=== PATIENT | male | born 1955 | race Caucasian/White ===

== ENCOUNTER → 2016-09-12 | Outpatient (CLI) | payer BC ==
[~2016-09-12] VITALS: Ht 175.3 cm; Wt 99.8 kg
[~2016-09-12] MED LIST: AMITRIPTYLINE H25 M2 PO; CARISOPRODOL 3350 MG PO; CHLORDIAZEPOXIDE5 M2 PO; HYDROCODONE-APA1 TA1 PO; INDERAL40 MG PO; LYRICA 75 MG CA75 MG PO; NEURONTIN 300300 M1 PO; PREDNISONE 10 M10 MG PO; PRILOSEC OTC20 MG PO; VENTOLIN HFA 1818 GM INH
--- NOTE | ~2016-09-12 | HPC ---
[facility] [place] [address] PAIN MANAGEMENT CONSULTATION Name: AILYN EL Room #: REG Dianna Roberto#: [id number] Admission: 09/12/16 Attend Phys: Eduardo Wood DO Discharge: Date of : 55 Report #: [id number] THIS REPORT FOR: //name// CC: Asif Contreras HISTORY OF PRESENT ILLNESS: The patient is a 60-year-old gentleman, seen in consultation at the request of Dr. 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 The patient notes he had decompressive lumbar laminectomy in 2001, by reports an L4-L5 laminectomy. The patient presented to the neurosurgeon with left sciatic-type pain. Unfortunately, subsequent to the surgery, he has had significant bipedal neuropathy. Per the patient, he has had a series of up to 6 epidural injections over the past several years, last injection being 4 years ago. Caudal epidural injections all with nominal efficacy. Followed up with a neurologist in [place], with whom he has an ongoing relationship. 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 Had found gabapentin helpful in the past, was rotated to Lyrica 75 mg b.i.d., but had to discontinue this agent due to exorbitant cost. Currently, he has been using hydrocodone 7.5/325 a half to 1 tablet at bedtime for up to 15 years. Just filled the prescription for 100 tablets 09/06/2016. Typically, this will last for about 3 months. He describes a burning pain in his feet exacerbated with standing, electric sensation that is quite problematic. Denies weakness, saddle anesthesia or bowel or bladder continence changes. Notes pain is anywhere from a 5 to a "10+" on a 0-10 visual analog scale. REVIEW OF SYSTEMS: Complete review of systems is attached to chart and is gone over with the patient. SOCIAL HISTORY: He is , seen in the company of his , who is supportive. He does not smoke or drink alcohol to excess. History of asthma for which he uses p.r.n. Proventil inhaler, has a benign familial tremor for which he takes propranolol p.r.n. Prilosec p.r.n. for gastroesophageal reflux. He has a prescription for carisoprodol, which he uses at bedtime for pain, hydrocodone 7.5/325, again, one half to one tablet at bedtime for pain. Chlordiazepoxide, again low dose 5 mg typically p.r.n. for insomnia and pain. PAST SURGICAL HISTORY: Includes the aforementioned back surgery in 2001 and a left knee reconstruction in 2011. OCCUPATIONAL HISTORY: The patient works in construction management, typically [address] [address] PAIN MANAGEMENT CONSULTATION Name: AILYN EL Room #: REG ANN Mejia#: [id number] Admission: 09/12/16 Attend Phys: Eduardo Wood DO Discharge: Date of : 55 Report #: [id number] overseeing hospital construction on basis. He has continued to work despite pain. Pain impact score is 49/70. PHYSICAL EXAMINATION: GENERAL: Reveals a 5 feet 9 inches, 220-pound gentleman, BMI is 30.5 kg/m2. VITAL SIGNS: Blood pressure is 122/96, pulse 93 and respirations 16. NEUROLOGIC: Cranial nerves 2-12 are grossly intact. Pupils equal and reactive to light and accommodation. Extraocular muscles are intact. He is alert and oriented to person, place and time, judged to be a reasonable historian. Thyroid is unremarkable. Upper extremity strength is preserved. He has a history of benign familial tremor, though I detect none at present. Rises from chair easily. Gait is tandem. He can walk on his toes and heels. Lumbar flexion is limited about 80 degrees. Lower extremity strength is symmetric. Patellar reflexes are diminished on the left 1/4, 2/4 on the right. Achilles reflex similarly diminished on the left compared to the right. Straight leg raise is negative. HEART: Regular and rhythmical without murmur. LUNGS: Clear to auscultation. ABDOMEN: Unremarkable. DIAGNOSTIC STUDIES: There are no recent diagnostic studies available for evaluation at this time. ASSESSMENT: Neuropathic pain, bipedal likely secondary to lumbosacral irritation of nerve roots (arachnoiditis?). RECOMMENDATIONS: 1. We will request the patient sign release forms for his MRI and EMGs all done within the last 4 years. While these are somewhat dated, the patient notes symptoms have not changed since that time. 2. We will resume gabapentin 300 mg at bedtime, titrating on a 5-day basis up to 1 in the morning and 2 at night. Follow up in 4 weeks for reevaluation. The patient is doing well, tolerating medicines but with no side effects, but still having symptoms. We may add a sodium channel membrane stabilizing agent (Tegretol 200 mg, again starting 200 at bedtime and titrating to a target dose of 1 in the morning and 2 at night). If this does not afford adequate efficacy, we also talked today about possibility of a spinal cord stimulator. Our goal will be to manage neuropathic pain symptoms to the point that he does not require an opiate analgesic at bedtime. [facility] [address] [place] [address] PAIN MANAGEMENT CONSULTATION Name: SIENNAAILYNCleo KINGLEONARDA Room #: REG CL Neetu.#: [id number] Admission: 09/12/16 Attend Phys: Eduardo Wood DO Discharge: Date of : 55 Report #: [id number] Thank you for allowing me to participate in the patient's care. I will keep you abreast of his progress. <ELECTRONICALLY SIGNED> By: Eduardo Wood DO 09/13/16 1626 1514 0814 Eduardo Wood DO /nt
[2016-09-12 13:39] VITALS: BP 122/96
== END ==
LOC: PAIN 13:07
DX: G89.29 Other chronic pain (principal)

== ENCOUNTER → 2016-10-18 | Outpatient (CLI) | payer BC ==
[~2016-10-18] VITALS: Ht 175.3 cm; Wt 102.1 kg
[~2016-10-18] MED LIST changes: +TRILEPTAL150 MG PO
[2016-10-18 13:13] VITALS: BP 144/98
== END | disposition home or self-care (01) ==
LOC: PAIN 06:54
DX: M79.672 Pain in left foot (principal); G89.29 Other chronic pain; M79.671 Pain in right foot; F11.20 Opioid dependence, uncomplicated; Z98.890 Other specified postprocedural states; Z88.8 Allergy status to other drugs, medicaments and biological substances

== ENCOUNTER → 2016-12-30 | Outpatient (CLI) | payer BC ==
[~2016-12-30] VITALS: Ht 175.3 cm; Wt 101.0 kg
[~2016-12-30] MED LIST changes: +NORCO 7.5-3251 EACH PO
--- NOTE | ~2016-12-30 | HPC ---
[facility] [place] [address] [address] [place] [address] PAIN MANAGEMENT CONSULTATION Name: AILYN EL Room #: REG ANN Roberto#: [id number] Admission: 12/30/16 Attend Phys: Eduardo Wood DO Discharge: Date of : 55 Report #: [id number] THIS REPORT FOR: //name// CC: Asif Wood DATE OF SERVICE: 12/30/2016 The patient is a pleasant 61-year-old gentleman seen in consultation on 09/12/2016 for bipedal neuropathy. He is status post lumbar decompressive laminectomy. He has been treated for high risk complex medication management. We continued gabapentin 300 mg b.i.d. at his initial visit. On last visit, I added Trileptal 150 mg. He returns to Pain Clinic today. Notes that the addition of Trileptal really afforded no relief. We have elected to wean this agent. I discussed the spinal cord stimulator at last visit. He has done a fair bit of research on his own regarding this therapeutic device and is anxious about moving forward with a trial for bipedal neuropathy. He did see Maegan Blanchard MD for psychiatric evaluation last month, notes "patient has good understanding of the proposed procedure." His expectations for pain are realistic and he has spoken to me about alternatives to this treatment. I do not believe that this patient has any other psychological disorder or factor that would inhibit him from getting implantation. Today, however, he also notes some chronic right hip pain. He notes he had done karate throughout all of his adult life, actually only quit about age 56. He had had trauma to the right hip in the past. He had an injection about 5 years ago with good improvement of symptoms. States he had had some increasing pain over the last month, but today it is fairly nominal. PHYSICAL EXAMINATION: Today, physical exam shows a 61-year-old gentleman. BMI is 32.9 kg/m2. Blood pressure on EMR, pulse 72, respirations of 14, subjective pain score is 4 on a VAS. Again, chronic burning dysesthesia in his feet with some prior pain in the right hip, which is quiescent at present. The patient rises from chair using armrest. Gait is tandem. Lower extremity strength is preserved. Burning dysesthesia in his feet. Passive rotation of the right hip is unremarkable at this time. Extension of the hip (Melissa test) does exacerbate some right groin pain. ASSESSMENT: Lumbar radiculopathy, status post decompressive laminectomy, arachnoiditis, neuropathic pain, bipedal neuropathy in a patient with component of right hip degenerative joint disease. RECOMMENDATION: If right hip issues become problematic in the future, we can consider right hip joint injection under fluoroscopy. Presently, however, we elected to move forward with spinal cord stimulator trial at earliest possible [address] [address] PAIN MANAGEMENT CONSULTATION Name: AILYN EL Room #: REG ANN Mejia#: [id number] Admission: 12/30/16 Attend Phys: Eduardo Wood DO Discharge: Date of : 55 Report #: [id number] date. We did again review diagnostic trial expectations and possible indentation if successful. The patient was seen for prolonged visit from 13:12-13:40. Greater than 50% of this 28-minute visit was spent counseling the patient. Discharged in good and stable condition. <ELECTRONICALLY SIGNED> By: Eduardo Wood DO 01/01/17 0811 1507 0148 Eduardo Wood DO /nt
[2016-12-30 13:11] VITALS: BP 135/90
== END ==
LOC: PAIN 09:47
DX: M54.16 Radiculopathy, lumbar region (principal); M16.11 Unilateral primary osteoarthritis, right hip

== ENCOUNTER → 2017-10-16 | Outpatient (CLI) | payer OTHER ==
[~2017-10-16] VITALS: Ht 175.3 cm; Wt 99.0 kg
[~2017-10-16] MED LIST changes: +ASPIR-TRIN325 MG PO; +CHLORDIAZEPO-A1 EACH PO
--- NOTE | ~2017-10-16 | HPC ---
[facility] [place] [address] PAIN MANAGEMENT CONSULTATION Name: AILYN EL Room #: REG Dianna Roberto#: [id number] Admission: 10/16/17 Attend Phys: Eduardo Wood DO Discharge: Date of : 55 Report #: [id number] THIS REPORT FOR: //name// CC: Asif Wood The patient is a 61-year-old gentleman, prior seen for symptomatic bipedal neuropathy, failed back syndrome, status post lumbar decompressive laminectomy. We had tried a multiplicity of membrane stabilizing agents including both sodium and calcium channel membrane stabilizers (gabapentin and Trileptal). Really no efficacy. We talked about a spinal cord stimulator as possible therapeutic option. His psychiatric evaluation by Dr. Maegan Blanchard stated "the patient has good understanding of the proposed procedure." Expectations were realistic. "I don't believe that this patient has any psychological disorder or factor that would inhibit him from getting implantation." Nonetheless in this patient with failed back syndrome, neuropathic pain and appropriate psychologic evaluation, insurance denied spinal cord stimulator (?). He has been taking low dose hydrocodone 7.5/325 anywhere from 0 to 1-1/2 tablets a day. Prescription for 100 tablets generated in April is just now running out. The patient's physician, Dr. Oates told him "he cannot write for pain medications anymore." While this is not technically correct, all physicians who have not been sanctioned by [place] Department [employer] are enabled to write for appropriate narcotics and clearly the patient is using this appropriately, many general office associate physicians have elected not to write for opiate medications. I discussed this with the patient today. He is using medicine exquisitely appropriately. Medications have enabled him to participate in activities of daily living, he recently took a sabbatical from his job to get a master's degree. He is planning on going back to work this fall. 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 The patient returns to pain clinic today. We had a prolonged visit reviewing therapeutic options. Pain is primarily in his feet, left and right. Some low back pain. Symptoms have gotten worse after his decompressive laminectomy in 2001. He describes constant, burning, tingling sensation, rates it 2-3 on VAS. It does get worse when he is recumbent at night. Physical exam, however, shows 61-year-old gentleman, BMI is 32.2 kilograms per meter squared. Vital signs stable as noted on the EMR. Rises from chair easily. Gait is tandem. Lower extremity strength is preserved. Physical exam is fairly unremarkable at this time. ASSESSMENT: Symptomatic lumbar radiculopathy status post decompressive laminectomy, failed back syndrome with primary neuropathic pain affecting bilateral feet. [facility] [address] [place] [address] PAIN MANAGEMENT CONSULTATION Name: AILYN EL Room #: REG [facility] Roberto#: [id number] Admission: 10/16/17 Attend Phys: Eduardo Wood DO Discharge: Date of : 55 Report #: [id number] RECOMMENDATIONS: I had a long discussion with the patient today about therapeutic options. Ultimately, I have agreed to continue him on low-dose hydrocodone 7.5/325 with prescription enabling 3-4 tablets a day, thus allowing 100 tablets with a single prescription, this should last him about another 5 or 6 months. He has failed membrane stabilizing agents. I again suggested he will be a good candidate for spinal cord stimulator; however, given the fairly nominal amount of medication he is taking in the functional status, he has been able to maintain, we may put that plan on hold. We will have the patient follow simply on as needed basis. He can see an of my [facility] associates partners. Discharged in good and stable condition. <ELECTRONICALLY SIGNED> By: Eduardo Wood DO 10/17/17 0654 [id number] 2316 Eduardo Wood DO /nt
[2017-10-16 09:56] VITALS: BP 119/98
== END ==
LOC: PAIN 07:23
DX: M54.16 Radiculopathy, lumbar region (principal)

== ENCOUNTER → 2018-03-27 | Outpatient (CLI) | payer OTHER ==
[~2018-03-27] VITALS: Ht 175.3 cm; Wt 103.9 kg
[~2018-03-27] MED LIST changes: +AMITRIPTYLINE H10 M3 PO; +HYDROCODON-ACE1 EAC8 PO
[2018-03-27 13:24] VITALS: BP 135/95
== END ==
LOC: PAIN 11:45
DX: M79.671 Pain in right foot (principal); M79.672 Pain in left foot; G89.29 Other chronic pain; Z79.899 Other long term (current) drug therapy

== ENCOUNTER → 2018-12-18 | Outpatient (CLI) | payer OTHER ==
[~2018-12-18] VITALS: Ht 175.3 cm; Wt 98.4 kg
--- NOTE | ~2018-12-18 | HPC ---
[facility] [address] [address] [place] [address] PAIN MANAGEMENT CONSULTATION Name: AILYN EL Room #: REG ANN Roberto#: [id number] Admission: 12/18/18 ������������������ Attend Phys: Vernon Moreland MD Discharge: ������������������ Date of : 55 Report #: [id number] THIS REPORT FOR: //name// CC: Asif Moreland DATE OF SERVICE: 12/18/2018 CHIEF COMPLAINT: Pain in both feet, left and right, and low back pain, here for medications. HISTORY: The patient is a 63-year-old male who has been referred to the pain clinic for evaluation. The patient has had chronic pain for a number of years. He had surgery in the back area in 2001. He describes the discomfort is constant, burning, tingling, hot. He rates it as a 2-3 today. Pain is often worse at night, particularly when he is lying down. Too much exercise activity can exacerbate his pain as well. Sitting for a prolonged period can exacerbate his discomfort. Finds the medications are helpful. He suffers from failed back syndrome. He has been treated with membrane stabilizing medications such as sodium and calcium channel stabilizers. Gabapentin as well as Tegretol have been used. 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 He has returned today for renewal of his medications. ALLERGIES: MORPHINE, CODEINE. CURRENT MEDICATIONS: Amitriptyline/chlordiazepoxide 5/12.5 t.i.d., aspirin, albuterol 2 puffs 4-6 hours and hydrocodone 7.5 mg. PAIN CLINIC ASSESSMENT AND PQRS: 1. The patient is not being treated for osteoarthritis or rheumatoid arthritis. 2. Height 5 feet 9 inches, weight 217 pounds, BMI is 32.0. 3. Vital Signs: Blood pressure is 122/86, pulse 67, respiratory rate 16, room air saturation 96%. 4. Pain intensity /10. 5. Fall history: The patient has not fallen in the last 3 months. 6. Blood thinner. The patient is not on a blood thinning medication. 7. Hypertension. The patient is not being treated for hypertension. 8. Opioids greater than 6 weeks. The patient receives medication from one source, the pain clinic. 9. Risk assessment tool, low for opioid use. 10. Functional assessment tool, . 11. Recreational drug use. The patient denies. 12. Tobacco: The patient has never smoked. 13. Alcohol: The patient denies frequent use of alcoholic beverages. PHYSICAL EXAMINATION: [facility] [address] [place] [address] PAIN MANAGEMENT CONSULTATION Name: AILYN EL Room #: REG [facility]#: [id number] Admission: 12/18/18 ������������������ Attend Phys: Vernon Moreland MD Discharge: ������������������ Date of : 55 Report #: [id number] GENERAL: The patient is a well-developed, well-nourished white male. Appears his stated age. He is alert and oriented x 3. Affect is appropriate. Speech is fluent. HEENT: Normocephalic, atraumatic. Extraocular eye muscles intact. Sclerae nonicteric. Mucous membranes are moist. NECK: Without adenopathy or JVD. MUSCULOSKELETAL: The patient has pain in the lower portion of his back. He notes that there is pain that radiates down into his foot involving the sciatic area and has a neuropathic component to this discomfort. Pain can be problematic if he lies for too long on the sofa. He has some popping sensation in his feet at times. He has some pain and discomfort in his left great toe. He continues to stay active and goes to the gym. He does walk and use an elliptical bike. IMPRESSION: 1. Chronic pain with neuropathic component in the lower extremity. 2. Failed back syndrome. 3. Hypertension. RECOMMENDATIONS: We discussed treatment options with the patient. At this juncture, we will continue with his medications of hydrocodone 7.5 mg 1 p.o. q.i.d. The patient is aware that opioid medications can be problematic in some patients. He is taking the medications as prescribed and only as needed. He finds that there is efficacy in this. He has seen in the news that opioid medications can be problematic and a number of patients have become dependent on these. The patient is exhibiting no evidence of addiction. Keeps his medications in a guarded area. We will renew his medications of Poth 7.5 mg, total of 120 tablets have been dispensed. He will call us if he has any concerns. He will also continue with his other medications of aspirin and Ventolin. ��������������������������������������������� ���������������������������������������� By: ��������������������������������������������� 1630 0434 Vernon Moreland MD /nt
[2018-12-18 13:45] VITALS: BP 122/86
--- NOTE | 2018-12-18 13:46 | NUR ---
Pain Clinic Assessment: 1. History of Osteoarthritis: Not Applicable History of Rheumatoid Arthritis: Not Applicable 2. Height: 5 ft. 9 in. 175.3 cm. Weight: 217.0 lb. oz. 98.431 kg. Patient's BMI: 32.0 3. Vital Signs: BP: 122/86 Pulse: 67 Resp: 16 Temp: 02 Sat: 96 ECG Mon: 4. Pain Intensity: 3 5. Fall Risk: Dizziness: N Needs help standing or walking: N Fallen in the last 3 months: N Fall risk comments: 6. Patient on Blood Thinner: None 7. History of Hypertension: N 8. Opioid Therapy greater than 6 weeks: Y Opiate Contract Signed: 9. Risk Assessment Tool Provided: 0-LOW 10. Functional Assessment Tool: 11. Recreational Drug Use: Never Drug Type: Tobacco Use: Never Smoker Tobacco Type: Amount or Packs/day: How Many Years: Alcohol Use: No Frequency: Quant:
== END ==
LOC: PAIN 13:13
DX: M54.5 Low back pain (principal); G89.29 Other chronic pain; I10 Essential (primary) hypertension

== ENCOUNTER → 2019-07-02 | Outpatient (CLI) | payer OTHER ==
[~2019-07-02] VITALS: Ht 175.3 cm; Wt 98.4 kg
[~2019-07-02] MED LIST changes: +MEDROLDOSEPACK PO; +MOBIC15 MG PO
[2019-07-02 09:58] VITALS: BP 140/87
--- NOTE | 2019-07-02 10:07 | NUR ---
Pain Clinic Assessment: 1. History of Osteoarthritis: DENIES History of Rheumatoid Arthritis: DENIES 2. Height: 5 ft. 9 in. 175.3 cm. Weight: 217.0 lb. oz. 98.431 kg. Patient's BMI: 32.0 3. Vital Signs: BP: 140/87 Pulse: 74 Resp: 16 Temp: 02 Sat: 100 ECG Mon: 4. Pain Intensity: 4 5. Fall Risk: Dizziness: N Needs help standing or walking: N Fallen in the last 3 months: N Fall risk comments: 6. Patient on Blood Thinner: None 7. History of Hypertension: N 8. Opioid Therapy greater than 6 weeks: Y Opiate Contract Signed: 10/16/17 9. Risk Assessment Tool Provided: 0-LOW 10. Functional Assessment Tool: 11. Recreational Drug Use: Never Drug Type: Tobacco Use: Never Smoker Tobacco Type: Amount or Packs/day: How Many Years: Alcohol Use: No Frequency: Quant:
--- NOTE | 2019-07-16 08:21 | HPC ---
[facility] [place] [address] PAIN MANAGEMENT CONSULTATION Name: AILYN EL Room #: REG ANN De Anda.#: [id number] Admission: 07/02/19 Attend Phys: Vernon Moreland MD Discharge: Date of : 55 Report #: [id number] THIS REPORT FOR: cc: Asif Oates,Vernon Shrestha MD ~ CC: Asif Moreland DATE OF SERVICE: 07/02/2019 CHIEF COMPLAINT: Pain in the feet, left leg. HISTORY: The patient is a 63-year-old gentleman who has been seen in the Pain Clinic because of chronic foot pain. He has had chronic neuropathic type pain for a number of years. He does note pain and discomfort in his feet. Describes a burning, tingling discomfort. Has onset of this discomfort after 30-40 minutes while walking. He suffers from failed back syndrome. He has been treated with membrane-stabilizing medications. He has returned today for renewal of his medication. Feels that medications have been helpful. ALLERGIES: MORPHINE, CODEINE. CURRENT MEDICATIONS: Amitriptyline/chlordiazepoxide 5/12.5 t.i.d., aspirin, albuterol 2 puffs q. 4-6 hours, and hydrocodone 7.5 mg. PAIN CLINIC ASSESSMENT/PQRS: 1. The patient is not being treated for osteoarthritis or rheumatoid arthritis. 2. Height 5 feet 9 inches, weight 217 pounds, BMI is 32. 3. Vital Signs: Blood pressure 140/87, pulse 74, respiratory rate 16, and room air saturation is 100%. 4. Pain intensity, 4/10. 5. Fall history: The patient has not fallen in the last 3 months. 6. Blood thinner. The patient is not on a blood thinning medication. 7. Hypertension. The patient is not being treated for hypertension. 8. Opioids greater than 6 weeks. The patient receives his medication from one source. 9. Risk assessment tool, low for opioid use. 10. Functional assessment tool, 34/70. 11. Recreational drug use: The patient denies. 12. Tobacco: The patient has never smoked. 13. Alcohol. The patient denies frequent use of alcoholic beverages. PHYSICAL EXAMINATION: GENERAL: The patient is a well-developed, well-nourished white male. Appears his stated age. He is alert and oriented x 3. His affect is appropriate. [address] [address] PAIN MANAGEMENT CONSULTATION Name: AILYN EL Room #: REG CLI [facility]#: [id number] Admission: 07/02/19 Attend Phys: Vernon Moreland MD Discharge: Date of : 55 Report #: [id number] Speech is fluent. HEENT: Normocephalic, atraumatic. Extraocular eye muscles intact. Sclerae nonicteric. Mucous membranes are moist. MUSCULOSKELETAL: The patient has pain that radiates down into his feet with some neuropathic component. Pain becomes more problematic after standing and walking for about 45 minutes. Left leg can be more problematic than the right leg. He does have some pain and discomfort on the left side with bursitis. IMPRESSION: 1. Chronic pain with neuropathic component in the lower extremities. 2. Failed back syndrome. 3. Hypertension. RECOMMENDATIONS: We discussed treatment options with the patient. At this juncture, we will continue with the hydrocodone medication. The patient rarely takes medication. We have provided him with 7.5 mg, total of 120 tablets. He will also try Mobic 15 mg. He will try this nonsteroidal anti-inflammatory medication. Hopefully, he will notice some improvement. He will also try Medrol Dosepak in the interim. A script for Medrol Dosepak has been provided. He will take it as directed. Hopefully, he will continue to note some improvement in his pain. Again, he takes the hydrocodone medications only on rare occasions. He will follow up as needed. We would like to thank you for letting us participate in his care. We hope he continues to improve. <ELECTRONICALLY SIGNED> By: Vernon Moreland MD 07/16/19 0821 20 9 Vernon Moreland MD /nt
== END ==
LOC: PAIN 06:46
DX: M79.605 Pain in left leg (principal); I10 Essential (primary) hypertension; G89.29 Other chronic pain

== ENCOUNTER → 2019-11-26 | Outpatient (CLI) | payer OTHER ==
[~2019-11-26] VITALS: Ht 175.3 cm; Wt 96.3 kg
[~2019-11-26] MED LIST changes: +AMITRIPTYLINE H10 M1 PO
--- NOTE | ~2019-11-26 | HPC ---
[facility] [place] [address] PAIN MANAGEMENT CONSULTATION Name: AILYN EL Room #: REG ANN De Anda.#: [id number] Admission: 11/26/19 Attend Phys: Vernon Moreland MD Discharge: Date of : 55 Report #: [id number] THIS REPORT FOR: cc: Asif Oates,Vernon Shrestha MD ~ CC: Asif Moreland DATE OF SERVICE: 11/26/2019 CHIEF COMPLAINT: Pain in the feet and left leg. HISTORY: The patient is a 64-year-old gentleman who has been followed in the pain clinic. As aleshia may recall, he suffers from chronic foot pain. He feels that his pain has worsened in the last few weeks. About a month ago, he was baling hay. He has had some worsening of pain since that episode. He has been helped with his medication. At this juncture, hydrocodone continues to be helpful, but on occasion, he has taken an entire capsule. He had been taking one-half capsule of hydrocodone; they are 7.5 mg capsules. When his pain is worse, he takes the other half. He does not like to rely upon these medications. He has had chiropractic treatment in the past. Does not get prolonged benefit from that, it might last 2-3 hours to help calm his pain. He has used some diabetic cream to the affected area. He is not having any problems with the amitriptyline. ALLERGIES: MORPHINE, CODEINE. CURRENT MEDICATIONS: Amitriptyline/chlordiazepoxide 5/12.5 p.o. t.i.d., aspirin, albuterol 2 puffs q. 4-6 hours, hydrocodone 7.5 mg. PAIN CLINIC ASSESSMENT AND PQRS: 1. The patient is not being treated for osteoarthritis or rheumatoid arthritis. 2. Height 5 feet 9 inches, weight 212 pounds, BMI 34. 3. Vital signs: Blood pressure 137/97, pulse 88, respiratory rate 18, room air saturation 98%. 4. Pain intensity 09/28. 5. Fall history: The patient has not fallen in the last 3 months. 6. Blood thinner. The patient is not on a blood thinning medication. 7. Hypertension. The patient is not being treated for hypertension. 8. Opioids greater than 6 weeks. The patient receives medication from one source, pain clinic. 9. Risk assessment tool, low for opioid use. 10. Functional assessment tool 34/70. 11. Recreational drug use. The patient denies. 12. Tobacco: The patient [place] [address] PAIN MANAGEMENT CONSULTATION Name: AILYN EL Room #: REG [facility]#: [id number] Admission: 11/26/19 Attend Phys: Vernon Moreland MD Discharge: Date of : 55 Report #: [id number] 13. Alcohol: The patient denies frequent use of alcoholic beverages. PHYSICAL EXAMINATION: GENERAL: The patient is a well-developed, well-nourished white male. Appears his stated age. He is alert and oriented x 3. His affect is appropriate. Speech is fluent. HEENT: Normocephalic, atraumatic. Extraocular eye muscles intact. Sclerae nonicteric. Mucous membranes are moist. NECK: Without adenopathy or JVD. HEART: Regular rate. LUNGS: Clear. ABDOMEN: Nontender. MUSCULOSKELETAL: Upper extremity muscle strength judged to be 5/5 for the major muscle groups in the upper extremity. The patient does complain of pain ____ that involve his feet. There is a neuropathic component. Notes that standing for some period of time can be problematic. The patient notes some increased pain and discomfort when he wakes up in the morning. IMPRESSION: 1. Chronic pain with neuropathic component, lower extremity. 2. Failed back syndrome. 3. Hypertension. RECOMMENDATIONS: We discussed treatment options with the patient. At this juncture, we will continue with his medications. We will have him increase the amitriptyline to 2 tablets, a total of 20 mg at night. We will also continue with meloxicam 15 mg 1 p.o. daily. A script for hydrocodone 7.5 mg 1 p.o., total of 120 tablets have been provided. We would like to thank you for letting us participate in his care. He will call us if he has any concerns. He is staying watchful in regard to the coronavirus pandemic. 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 By: [id number] Vernon Moreland MD /nt
[2019-11-26 13:04] VITALS: BP 137/93
--- NOTE | 2019-11-26 13:06 | NUR ---
Pain Clinic Assessment: 1. History of Osteoarthritis: DENIES History of Rheumatoid Arthritis: DENIES 2. Height: 5 ft. 9 in. 175.3 cm. Weight: 212.4 lb. oz. 96.344 kg. Patient's BMI: 31.4 3. Vital Signs: BP: 137/93 Pulse: 88 Resp: 18 Temp: 02 Sat: 98 ECG Mon: 4. Pain Intensity: 6 5. Fall Risk: Dizziness: N Needs help standing or walking: N Fallen in the last 3 months: N Fall risk comments: 6. Patient on Blood Thinner: None 7. History of Hypertension: N 8. Opioid Therapy greater than 6 weeks: Y Opiate Contract Signed: 10/16/17 9. Risk Assessment Tool Provided: 0-LOW 10. Functional Assessment Tool: 11. Recreational Drug Use: Never Drug Type: Tobacco Use: Never Smoker Tobacco Type: Amount or Packs/day: How Many Years: Alcohol Use: No Frequency: Quant:
== END ==
LOC: PAIN 07:10
PROVIDERS: ATTEND Anesthesiology Pain Medicine
DX: M79.2 Neuralgia and neuritis, unspecified (principal); G89.29 Other chronic pain; M96.1 Postlaminectomy syndrome, not elsewhere classified; I10 Essential (primary) hypertension; Z88.8 Allergy status to other drugs, medicaments and biological substances; Z79.899 Other long term (current) drug therapy

== ENCOUNTER → 2020-05-26 | Outpatient (CLI) | payer OTHER ==
[~2020-05-26] VITALS: Ht 175.3 cm; Wt 98.6 kg
[2020-05-26 12:53] VITALS: BP 136/74
--- NOTE | 2020-05-26 13:12 | NUR ---
Pain Clinic Assessment: 1. History of Osteoarthritis: DENIES History of Rheumatoid Arthritis: DENIES 2. Height: 5 ft. 9 in. 175.3 cm. Weight: 217.4 lb. oz. 98.612 kg. Patient's BMI: 32.1 3. Vital Signs: BP: 136/74 Pulse: 108 Resp: 14 Temp: 02 Sat: 98 ECG Mon: 4. Pain Intensity: 7-8 NIGHTS 5. Fall Risk: Dizziness: N Needs help standing or walking: N Fallen in the last 3 months: N Fall risk comments: 6. Patient on Blood Thinner: None 7. History of Hypertension: N 8. Opioid Therapy greater than 6 weeks: Y Opiate Contract Signed: 10/16/17 9. Risk Assessment Tool Provided: 0-LOW 10. Functional Assessment Tool: 11. Recreational Drug Use: Never Drug Type: Tobacco Use: Never Smoker Tobacco Type: Amount or Packs/day: How Many Years: Alcohol Use: Yes Frequency: Special Occasions Quant:
== END ==
LOC: PAIN 07:03
PROVIDERS: ATTEND Anesthesiology Pain Medicine
DX: M25.512 Pain in left shoulder (principal); G62.9 Polyneuropathy, unspecified; M96.1 Postlaminectomy syndrome, not elsewhere classified; I10 Essential (primary) hypertension; Z88.8 Allergy status to other drugs, medicaments and biological substances; Z79.899 Other long term (current) drug therapy

== ENCOUNTER → 2021-01-12 | Outpatient (CLI) | payer BC ==
[~2021-01-12] VITALS: Ht 175.3 cm; Wt 97.0 kg
[~2021-01-12] MED LIST changes: +MOBIC7.5 MG PO
[2021-01-12 09:46] VITALS: BP 150/97
--- NOTE | 2021-01-12 09:57 | NUR ---
Pain Clinic Assessment: 1. History of Osteoarthritis: DENIES History of Rheumatoid Arthritis: DENIES 2. Height: 5 ft. 9 in. 175.3 cm. Weight: 213.8 lb. oz. 96.979 kg. Patient's BMI: 31.6 3. Vital Signs: BP: 150/97 Pulse: 82 Resp: 16 Temp: 02 Sat: 99 ECG Mon: 4. Pain Intensity: 7-8 NIGHTS 5. Fall Risk: Dizziness: N Needs help standing or walking: N Fallen in the last 3 months: N Fall risk comments: 6. Patient on Blood Thinner: None 7. History of Hypertension: N 8. Opioid Therapy greater than 6 weeks: Y Opiate Contract Signed: 10/16/17 9. Risk Assessment Tool Provided: 0-LOW 10. Functional Assessment Tool: 11. Recreational Drug Use: Never Drug Type: Tobacco Use: Never Smoker Tobacco Type: Amount or Packs/day: How Many Years: Alcohol Use: No Frequency: Quant:
== END ==
LOC: PAIN 06:49
PROVIDERS: ATTEND Anesthesiology Pain Medicine
DX: G89.29 Other chronic pain (principal); M25.551 Pain in right hip; I10 Essential (primary) hypertension; M25.512 Pain in left shoulder; M96.1 Postlaminectomy syndrome, not elsewhere classified; Z88.8 Allergy status to other drugs, medicaments and biological substances; Z79.899 Other long term (current) drug therapy